=== PATIENT | female | born 1930 | race Caucasian/White ===

== ENCOUNTER 2017-12-25 09:33 | Inpatient (IN) | payer MEDICARE, OTHER ==
[2017-12-25 10:05] LABS: ADD MAN DIFF? NO
[2017-12-25] MEDS: ADENOSINE 6 MG INJ IV (10:05)
[2017-12-25 10:08] LABS: WHITE BLOOD COUNT 5.3 10^3/ul (4.8-10.8)
[2017-12-25 10:08] LABS: BASOPHILS % 0.6 % (0.0-2.0); EOSINOPHILS # 0.1 10^3/ul (0.0-0.5); EOSINOPHILS % 2.3 % (0.0-7.0); HEMATOCRIT 31.1 % (37.0-47.0); HEMOGLOBIN 9.6 g/dl (12.0-16.0); LYMPHOCYTES # 1.3 10^3/ul (0.8-2.9); LYMPHOCYTES % 25.1 % (15.0-51.0); MEAN CORPUSCULAR HEMOGLOBIN 32.4 pg (29.0-33.0); MEAN CORPUSCULAR HGB CONC 30.9 g/dl (32.0-37.0); MEAN CORPUSCULAR VOLUME 105.1 fl (82.0-101.0); MEAN PLATELET VOLUME 9.8 fl (7.4-10.4); MONOCYTE # 0.4 10^3/ul (0.3-0.9); MONOCYTES % 6.6 % (0.0-11.0); NEUTROPHIL # 3.5 10^3/ul (1.6-7.5); PLATELET COUNT 194 10^3/UL (140-415); RED BLOOD COUNT 2.96 10^6/ul (4.20-5.40); RED CELL DISTRIBUTION WIDTH 15.1 % (11.5-14.5)
[2017-12-25] MEDS: AMIODARONE 900MG/D5W DRIP 500 ML IV ×2 (10:08→10:49)
[2017-12-25] MEDS: DILTIAZEM 25 MG INJ IV (10:24)
[2017-12-25] MEDS: AMIODARONE 150MG/D5W BOLUS IV* (10:33)
[2017-12-25 10:34] LABS: ANION GAP 19 (8-16); BLOOD UREA NITROGEN 29 mg/dl (7-20); CALCIUM 9.1 mg/dl (8.4-10.2); CARBON DIOXIDE 27 mmol/L (21-31); CHLORIDE 110 mmol/L (97-110); CREATININE 1.14 mg/dl (0.44-1.00); GLUCOSE 115 mg/dl (70-220); POTASSIUM 4.1 mmol/L (3.5-5.1); SODIUM 152 mmol/L (135-144)
[2017-12-25 10:46] LABS: TROPONIN-I 0.036 ng/ml (0.00-0.12)
[2017-12-25] MEDS ORDERED: ONDANSETRON 4 MG INJ IV ×2 (11:30→15:00)
[2017-12-25] MEDS: DILTIAZEM 30 MG TAB PO (12:17)
[2017-12-25] MEDS: DEXTROSE 5% 1,000 ML IV (14:58)
[2017-12-25] MEDS ORDERED: GLUCAGON 1 MG INJ IM (15:00)
[2017-12-25] MEDS ORDERED: GLUCOSE GEL 15 GRAM TUBE PO ×2 (15:00)
[2017-12-25] MEDS ORDERED: NACL 0.9% 3 ML SYG IV (15:00)
[2017-12-25] MEDS ORDERED: ACETAMINOPHEN 325 MG TAB PO (15:00)
[2017-12-25] MEDS ORDERED: DEXTROSE 50% 50 ML SYRINGE IV ×2 (15:00)
[2017-12-25] MEDS ORDERED: GLUCOSE GEL 15 GRAM TUBE BUCCAL (15:00)
[2017-12-25 16:25] LABS: CREATINE KINASE 35 IU/L (23-200)
[2017-12-25 16:35] LABS: OSMOLALITY 302 mOsm/kg (280-295)
[2017-12-25 16:36] LABS: CK INDEX 3.5
[2017-12-25 16:38] LABS: TROPONIN-I 0.043 ng/ml (0.00-0.12)
[2017-12-25 16:46] LABS: CK-MB 1.24 ng/ml (0.0-2.4)
[2017-12-25 16:54] LABS: SODIUM,URINE RANDOM 123 mmol/L (30-90)
[2017-12-25 16:54] LABS: CREATININE,URINE RANDOM 45.15 mg/dl (20-320)
[2017-12-25 16:55] LABS: CREATININE,URINE RANDOM 45.13 mg/dl (20-320); PROTEIN/CREAT RATIO 0.19 RATIO
[2017-12-25 17:38] LABS: OSMOLALITY,URINE 453 mOsm/kg (250-1200)
[2017-12-25] MEDS: ACETAMINOPHEN 325 MG TAB PO (17:43)
[2017-12-25] MEDS: INSULIN ASPART [NOVOLOG] 3 ML PEN SC ×2 (18:00→20:52)
[2017-12-25] MEDS: ATORVASTATIN 40 MG TAB PO (20:41)
[2017-12-25] MEDS: FERROUS SULFATE (EC) 325 MG TAB PO (20:41)
[2017-12-25] MEDS: METOPROLOL 25 MG TAB PO (20:42)
[2017-12-25] MEDS: HEPARIN 5,000 UNIT/0.5 ML VIAL SC (20:56)
[2017-12-25 21:49] LABS: CREATINE KINASE 31 IU/L (23-200)
[2017-12-25 22:01] LABS: CK INDEX 4.1; CK-MB 1.26 ng/ml (0.0-2.4); TROPONIN-I 0.043 ng/ml (0.00-0.12)
[2017-12-26] MEDS: ACCU-CHEK XX (02:34)
[2017-12-26] MEDS: DEXTROSE 5% 1,000 ML IV ×2 (04:21→17:52)
[2017-12-26] MEDS: PANTOPRAZOLE (EC) 40 MG TAB PO (05:54)
[2017-12-26 05:57] LABS: ADD MAN DIFF? NO
[2017-12-26 06:04] LABS: BASOPHILS % 0.6 % (0.0-2.0); EOSINOPHILS # 0.2 10^3/ul (0.0-0.5); EOSINOPHILS % 3.4 % (0.0-7.0); HEMATOCRIT 27.8 % (37.0-47.0); HEMOGLOBIN 8.7 g/dl (12.0-16.0); LYMPHOCYTES # 1.5 10^3/ul (0.8-2.9); LYMPHOCYTES % 29.4 % (15.0-51.0); MEAN CORPUSCULAR HEMOGLOBIN 32.2 pg (29.0-33.0); MEAN CORPUSCULAR HGB CONC 31.3 g/dl (32.0-37.0); MEAN PLATELET VOLUME 9.9 fl (7.4-10.4); MONOCYTE # 0.3 10^3/ul (0.3-0.9); MONOCYTES % 6.9 % (0.0-11.0); NEUTROPHILS % 59.5 % (39.0-77.0); PLATELET COUNT 158 10^3/UL (140-415); RED CELL DISTRIBUTION WIDTH 14.9 % (11.5-14.5)
[2017-12-26 06:55] LABS: ALANINE AMINOTRANSFERASE 35 IU/L (13-69); ALBUMIN 3.5 g/dl (3.3-4.9); ALBUMIN/GLOBULIN RATIO 1.29; ALKALINE PHOSPHATASE 97 IU/L (42-121); ANION GAP 13 (8-16); ASPARTATE AMINO TRANSFERASE 23 IU/L (15-46); BLOOD UREA NITROGEN 21 mg/dl (7-20); CALCIUM 8.6 mg/dl (8.4-10.2); CARBON DIOXIDE 29 mmol/L (21-31); CHLORIDE 110 mmol/L (97-110); CHOL/HDL RATIO 3.3 RATIO; CHOLESTEROL 117 mg/dl (100-200); CREATININE 0.98 mg/dl (0.44-1.00); GLUCOSE 116 mg/dl (70-220); HDL CHOLESTEROL 35 mg/dl (33-92); LDL CHOLESTEROL,CALCULATED 58 mg/dl; MAGNESIUM 1.9 mg/dl (1.7-2.5); PHOSPHORUS 3.9 mg/dl (2.5-4.9); POTASSIUM 3.7 mmol/L (3.5-5.1); SODIUM 148 mmol/L (135-144); TOTAL PROTEIN 6.2 g/dl (6.1-8.1); TRIGLYCERIDES 122 mg/dl (0-149)
[2017-12-26 07:12] LABS: HEMOGLOBIN A1C 5.7 % (0-5.9)
[2017-12-26 07:16] LABS: THYROID STIMULATING HORMONE 0.957 MIU/L (0.465-4.680)
[2017-12-26] MEDS: INSULIN ASPART [NOVOLOG] 3 ML PEN SC ×4 (08:00→20:08)
[2017-12-26] MEDS ORDERED: FUROSEMIDE 20 MG TAB PO (09:00)
[2017-12-26] MEDS ORDERED: METOPROLOL (XL) 25 MG TAB PO (09:00)
[2017-12-26] MEDS: METOPROLOL 25 MG TAB PO (09:00)
[2017-12-26] MEDS ORDERED: ISOSORBIDE MONONITRATE(SR)30 MG TAB PO (09:00)
[2017-12-26] MEDS: DOCUSATE SODIUM 100 MG CAP PO (09:01)
[2017-12-26] MEDS: FERROUS SULFATE (EC) 325 MG TAB PO ×2 (09:01→22:09)
[2017-12-26] MEDS: carBAMAZepine CHEW 100 MG CHEW PO (09:01)
[2017-12-26] MEDS: ASPIRIN (EC) 81 MG TAB PO (09:02)
[2017-12-26] MEDS: HEPARIN 5,000 UNIT/0.5 ML VIAL SC ×2 (09:03→22:08)
[2017-12-26] MEDS: LOSARTAN 25 MG TAB PO (12:00)
[2017-12-26] MEDS ORDERED: DILTIAZEM 60 MG TAB PO (15:30)
[2017-12-26] MEDS ORDERED: DILTIAZEM 50 MG INJ IV (15:30)
[2017-12-26] MEDS: DILTIAZEM 50 MG INJ IV (15:39)
[2017-12-26] MEDS: POTASSIUM CHLORIDE (SR) 20 MEQ TAB PO (17:50)
[2017-12-26] MEDS: MAGNESIUM SULFATE 2 GM/50 ML 50 ML IVPB (17:51)
[2017-12-26] MEDS: FUROSEMIDE 40 MG INJ IV (17:52)
[2017-12-26] MEDS ORDERED: METOPROLOL 25 MG TAB PO (21:00)
[2017-12-26] MEDS: ATORVASTATIN 40 MG TAB PO (22:10)
[2017-12-26] MEDS: METOPROLOL 50 MG TAB PO (22:10)
[2017-12-27] MEDS: ACCU-CHEK XX (02:00)
[2017-12-27] MEDS: PANTOPRAZOLE (EC) 40 MG TAB PO (06:26)
[2017-12-27] MEDS: DEXTROSE 5% 1,000 ML IV ×2 (06:38→07:34)
[2017-12-27] MEDS: INSULIN ASPART [NOVOLOG] 3 ML PEN SC ×4 (08:00→20:03)
[2017-12-27] MEDS: carBAMAZepine CHEW 100 MG CHEW PO (09:31)
[2017-12-27] MEDS: FERROUS SULFATE (EC) 325 MG TAB PO ×2 (09:31→20:02)
[2017-12-27] MEDS: ASPIRIN (EC) 81 MG TAB PO (09:32)
[2017-12-27] MEDS: FUROSEMIDE 20 MG INJ IV (09:33)
[2017-12-27] MEDS: METOPROLOL 50 MG TAB PO ×2 (09:33→20:03)
[2017-12-27] MEDS: LOSARTAN 25 MG TAB PO (09:38)
[2017-12-27] MEDS: HEPARIN 5,000 UNIT/0.5 ML VIAL SC ×2 (09:47→20:19)
[2017-12-27] MEDS: ATORVASTATIN 40 MG TAB PO (20:02)
[2017-12-28] MEDS: ACCU-CHEK XX (02:00)
[2017-12-28] MEDS: PANTOPRAZOLE (EC) 40 MG TAB PO (06:18)
[2017-12-28] MEDS: INSULIN ASPART [NOVOLOG] 3 ML PEN SC ×4 (08:00→20:45)
[2017-12-28] MEDS: carBAMAZepine CHEW 100 MG CHEW PO (08:32)
[2017-12-28] MEDS: FERROUS SULFATE (EC) 325 MG TAB PO ×2 (08:32→20:43)
[2017-12-28] MEDS: ASPIRIN (EC) 81 MG TAB PO (08:32)
[2017-12-28] MEDS: LOSARTAN 25 MG TAB PO (08:32)
[2017-12-28] MEDS: METOPROLOL 50 MG TAB PO ×2 (08:32→20:44)
[2017-12-28] MEDS: FUROSEMIDE 20 MG INJ IV (08:33)
[2017-12-28] MEDS: HEPARIN 5,000 UNIT/0.5 ML VIAL SC ×2 (08:40→20:45)
[2017-12-28] MEDS: ATORVASTATIN 40 MG TAB PO (20:43)
[2017-12-29] MEDS: ACCU-CHEK XX (01:34)
[2017-12-29] MEDS: PANTOPRAZOLE (EC) 40 MG TAB PO (05:12)
[2017-12-29] MEDS: INSULIN ASPART [NOVOLOG] 3 ML PEN SC ×2 (08:00→12:00)
[2017-12-29] MEDS: FERROUS SULFATE (EC) 325 MG TAB PO (08:35)
[2017-12-29] MEDS: carBAMAZepine CHEW 100 MG CHEW PO (08:35)
[2017-12-29] MEDS: ASPIRIN (EC) 81 MG TAB PO (08:35)
[2017-12-29] MEDS: FUROSEMIDE 20 MG INJ IV (08:35)
[2017-12-29] MEDS: LOSARTAN 25 MG TAB PO (08:36)
[2017-12-29] MEDS: METOPROLOL 50 MG TAB PO (08:36)
[2017-12-29] MEDS: HEPARIN 5,000 UNIT/0.5 ML VIAL SC ×2 (08:37→08:43)
[2017-12-29 12:32] LABS: ADD MAN DIFF? NO
[2017-12-29 12:34] LABS: BASOPHILS % 0.4 % (0.0-2.0); EOSINOPHILS # 0.2 10^3/ul (0.0-0.5); EOSINOPHILS % 4.5 % (0.0-7.0); HEMATOCRIT 32.3 % (37.0-47.0); HEMOGLOBIN 10.1 g/dl (12.0-16.0); LYMPHOCYTES # 1.1 10^3/ul (0.8-2.9); LYMPHOCYTES % 23.3 % (15.0-51.0); MEAN CORPUSCULAR HGB CONC 31.3 g/dl (32.0-37.0); MEAN CORPUSCULAR VOLUME 102.2 fl (82.0-101.0); MEAN PLATELET VOLUME 9.6 fl (7.4-10.4); MONOCYTE # 0.3 10^3/ul (0.3-0.9); NEUTROPHIL # 3.1 10^3/ul (1.6-7.5); NEUTROPHILS % 64.6 % (39.0-77.0); PLATELET COUNT 186 10^3/UL (140-415); RED BLOOD COUNT 3.16 10^6/ul (4.20-5.40); RED CELL DISTRIBUTION WIDTH 14.4 % (11.5-14.5)
[2017-12-29 12:34] LABS: WHITE BLOOD COUNT 4.9 10^3/ul (4.8-10.8)
[2017-12-29 12:53] LABS: ANION GAP 13 (8-16); BLOOD UREA NITROGEN 28 mg/dl (7-20); CALCIUM 9.1 mg/dl (8.4-10.2); CARBON DIOXIDE 37 mmol/L (21-31); CHLORIDE 103 mmol/L (97-110); CREATININE 1.04 mg/dl (0.44-1.00); GLUCOSE 111 mg/dl (70-220); POTASSIUM 4.7 mmol/L (3.5-5.1); SODIUM 148 mmol/L (135-144)
[2017-12-29 14:01] LABS: FOLATE > 20.0 ng/ml (2.8-20.0)
== END 2017-12-29 15:23 | disposition home or self-care (01) | DRG 308 ==
LOC: MS4 11:04 → E/R 09:33
DX: I48.0 Paroxysmal atrial fibrillation (principal); I50.43 Acute on chronic combined systolic (congestive) and diastolic (congestive) heart failure; E87.0 Hyperosmolality and hypernatremia; I13.0 Hypertensive heart and chronic kidney disease with heart failure and stage 1 through stage 4 chronic kidney disease, or unspecified chronic kidney disease; I48.92 Unspecified atrial flutter; I49.5 Sick sinus syndrome; Z95.810 Presence of automatic (implantable) cardiac defibrillator; E86.0 Dehydration; N18.9 Chronic kidney disease, unspecified; I25.10 Atherosclerotic heart disease of native coronary artery without angina pectoris; E78.5 Hyperlipidemia, unspecified; G62.9 Polyneuropathy, unspecified; I42.9 Cardiomyopathy, unspecified; E66.9 Obesity, unspecified; Z68.33 Body mass index [BMI] 33.0-33.9, adult; D64.9 Anemia, unspecified
CPT/HCPCS: 36415; 71045; 80048; 80053; 80061; 81003; 82550; 82553; 82570; 82607; 82746; 82962; 83036; 83735; 83930; 83935; 84100; 84155; 84300; 84443; 84484; 85025; 93005; 93306; 96365; 96366; 96372; 96375; 96376; 97161; 99291-25

== ENCOUNTER 2017-12-30 15:28 | Inpatient (IN) | payer MEDICARE, OTHER ==
[2017-12-30] MEDS: MAGNESIUM SULFATE 2 GM/50 ML 50 ML IVPB (15:55)
[2017-12-30] MEDS: ASPIRIN 81 MG TAB PO (15:56)
[2017-12-30] MEDS: FUROSEMIDE 40 MG INJ IV (15:56)
[2017-12-30 16:19] LABS: ADD MAN DIFF? NO
[2017-12-30 16:22] LABS: BASOPHILS % 0.5 % (0.0-2.0); EOSINOPHILS # 0.2 10^3/ul (0.0-0.5); EOSINOPHILS % 2.4 % (0.0-7.0); HEMATOCRIT 32.5 % (37.0-47.0); HEMOGLOBIN 10.2 g/dl (12.0-16.0); LYMPHOCYTES # 1.5 10^3/ul (0.8-2.9); LYMPHOCYTES % 23.4 % (15.0-51.0); MEAN CORPUSCULAR HEMOGLOBIN 31.9 pg (29.0-33.0); MEAN CORPUSCULAR HGB CONC 31.4 g/dl (32.0-37.0); MEAN CORPUSCULAR VOLUME 101.6 fl (82.0-101.0); MEAN PLATELET VOLUME 10.7 fl (7.4-10.4); MONOCYTE # 0.6 10^3/ul (0.3-0.9); MONOCYTES % 8.7 % (0.0-11.0); NEUTROPHIL # 4.2 10^3/ul (1.6-7.5); NEUTROPHILS % 64.7 % (39.0-77.0); PLATELET COUNT 195 10^3/UL (140-415); RED CELL DISTRIBUTION WIDTH 14.6 % (11.5-14.5)
[2017-12-30 16:22] LABS: WHITE BLOOD COUNT 6.6 10^3/ul (4.8-10.8)
[2017-12-30] MEDS: DILTIAZEM 25 MG INJ IV (16:23)
[2017-12-30] MEDS: DILTIAZEM-D5W 125MG/125ML DRIP 125 ML IV (16:26)
[2017-12-30] MEDS: SOD CHLORIDE 0.9% 500 ML IV ×2 (16:38→18:01)
[2017-12-30 16:49] LABS: INR 1.06; PROTIME 13.9 Sec (11.9-14.9); PT RATIO 1.1
[2017-12-30 16:50] LABS: ALANINE AMINOTRANSFERASE 23 IU/L (13-69); ALBUMIN 4.1 g/dl (3.3-4.9); ALBUMIN/GLOBULIN RATIO 1.32; ALKALINE PHOSPHATASE 115 IU/L (42-121); ANION GAP 16 (8-16); ASPARTATE AMINO TRANSFERASE 23 IU/L (15-46); BILIRUBIN,INDIRECT 0.1 mg/dl (0-1.1); BILIRUBIN,TOTAL 0.1 mg/dl (0.2-1.3); BLOOD UREA NITROGEN 37 mg/dl (7-20); CARBON DIOXIDE 33 mmol/L (21-31); CHLORIDE 102 mmol/L (97-110); CREATININE 1.41 mg/dl (0.44-1.00); GLUCOSE 148 mg/dl (70-220); PARTIAL THROMBOPLASTIN TIME 31.4 Sec (25.0-35.0); POTASSIUM 4.4 mmol/L (3.5-5.1); SODIUM 147 mmol/L (135-144); TOTAL PROTEIN 7.2 g/dl (6.1-8.1)
[2017-12-30 16:59] LABS: B-TYPE NATRIURETIC PEPTIDE 2220 PG/ML (0-450); TROPONIN-I 0.045 ng/ml (0.00-0.12)
[2017-12-30] MEDS: IODIXANOL LOCM 100 ML BTL (17:20)
[2017-12-30] MEDS: SOD CHLORIDE 0.9% 100 ML (17:20)
[2017-12-30] MEDS ORDERED: ONDANSETRON 4 MG INJ IV ×2 (18:30→19:00)
[2017-12-30 18:39] LABS: LACTIC ACID 1.6 mmol/L (0.5-2.0)
[2017-12-30] MEDS ORDERED: FUROSEMIDE 40 MG INJ IV (19:00)
[2017-12-30] MEDS ORDERED: NITROGLYCERIN (SL) 0.4 MG TAB SL (19:00)
[2017-12-30] MEDS ORDERED: hydrALAzine 20 MG INJ IV (19:00)
[2017-12-30] MEDS ORDERED: morphine 2 MG INJ IV (19:00)
[2017-12-30] MEDS ORDERED: MAGNESIUM HYDROXIDE 30ML CUP PO (19:00)
[2017-12-30] MEDS ORDERED: NA PHOSPHATE/BIPHOS 133 ML ENEMA PR (19:00)
[2017-12-30] MEDS ORDERED: NACL 0.9% 3 ML SYG IV (19:00)
[2017-12-30] MEDS ORDERED: DOCUSATE SODIUM 100 MG CAP PO (19:00)
[2017-12-30 19:35] LABS: FREE T4 (FREE THYROXINE) 1.33 ng/dl (0.85-1.93)
[2017-12-30 19:54] LABS: LACTIC ACID 0.9 mmol/L (0.5-2.0)
[2017-12-30] MEDS: ATORVASTATIN 40 MG TAB PO (22:22)
[2017-12-30] MEDS: FERROUS SULFATE (EC) 325 MG TAB PO (22:22)
[2017-12-30] MEDS: HEPARIN 5,000 UNIT/0.5 ML VIAL SC (22:25)
[2017-12-30 23:51] LABS: CREATINE KINASE 30 IU/L (23-200)
[2017-12-30 23:51] LABS: LACTIC ACID 1.1 mmol/L (0.5-2.0)
[2017-12-31] MEDS: LORAZEPAM 2 MG INJ IV (00:02)
[2017-12-31 00:04] LABS: CK INDEX 2.5; CK-MB 0.76 ng/ml (0.0-2.4); TROPONIN-I 0.042 ng/ml (0.00-0.12)
[2017-12-31] MEDS: DILTIAZEM 25 MG INJ IV ×2 (02:58→03:12)
[2017-12-31] MEDS ORDERED: DILTIAZEM-D5W 125MG/125ML DRIP 125 ML IV (03:00)
[2017-12-31] MEDS: DILTIAZEM-D5W 125MG/125ML DRIP 125 ML IV ×2 (03:10→12:04)
[2017-12-31] MEDS: ACETAMINOPHEN 325 MG TAB PO (03:21)
[2017-12-31] MEDS: SOD CHLORIDE 0.9% 1,000 ML IV (04:20)
[2017-12-31] MEDS: FUROSEMIDE 40 MG INJ IV ×2 (05:28→18:00)
[2017-12-31] MEDS: PANTOPRAZOLE (EC) 40 MG TAB PO (05:29)
[2017-12-31] MEDS: DIGOXIN 500 MCG INJ IV ×2 (06:08→15:26)
[2017-12-31 07:14] LABS: ADD MAN DIFF? NO
[2017-12-31 07:20] LABS: WHITE BLOOD COUNT 9.9 10^3/ul (4.8-10.8)
[2017-12-31 07:20] LABS: BASOPHILS % 0.3 % (0.0-2.0); EOSINOPHILS % 0.1 % (0.0-7.0); HEMATOCRIT 30.6 % (37.0-47.0); HEMOGLOBIN 9.7 g/dl (12.0-16.0); LYMPHOCYTES # 0.9 10^3/ul (0.8-2.9); LYMPHOCYTES % 8.6 % (15.0-51.0); MEAN CORPUSCULAR HEMOGLOBIN 32.1 pg (29.0-33.0); MEAN CORPUSCULAR HGB CONC 31.7 g/dl (32.0-37.0); MEAN CORPUSCULAR VOLUME 101.3 fl (82.0-101.0); MEAN PLATELET VOLUME 10.6 fl (7.4-10.4); MONOCYTE # 0.8 10^3/ul (0.3-0.9); MONOCYTES % 8.2 % (0.0-11.0); NEUTROPHILS % 81.4 % (39.0-77.0); PLATELET COUNT 170 10^3/UL (140-415); RED BLOOD COUNT 3.02 10^6/ul (4.20-5.40); RED CELL DISTRIBUTION WIDTH 14.6 % (11.5-14.5)
[2017-12-31 07:49] LABS: HEMOGLOBIN A1C 5.5 % (0-5.9)
[2017-12-31 07:50] LABS: CREATINE KINASE 32 IU/L (23-200)
[2017-12-31 07:52] LABS: ANION GAP 15 (8-16); BLOOD UREA NITROGEN 37 mg/dl (7-20); CALCIUM 8.7 mg/dl (8.4-10.2); CARBON DIOXIDE 30 mmol/L (21-31); CHLORIDE 107 mmol/L (97-110); CREATININE 1.37 mg/dl (0.44-1.00); GLUCOSE 156 mg/dl (70-220); MAGNESIUM 2.3 mg/dl (1.7-2.5); PHOSPHORUS 3.8 mg/dl (2.5-4.9); POTASSIUM 3.8 mmol/L (3.5-5.1); SODIUM 148 mmol/L (135-144)
[2017-12-31 07:57] LABS: CK INDEX 2.5; TROPONIN-I 0.081 ng/ml (0.00-0.12)
[2017-12-31 08:00] LABS: CHOLESTEROL 129 mg/dl (100-200)
[2017-12-31 08:00] LABS: CHOL/HDL RATIO 2.9 RATIO; HDL CHOLESTEROL 44 mg/dl (33-92); LDL CHOLESTEROL,CALCULATED 71 mg/dl; TRIGLYCERIDES 71 mg/dl (0-149)
[2017-12-31] MEDS: ASPIRIN (EC) 81 MG TAB PO (08:15)
[2017-12-31] MEDS: POTASSIUM CHLORIDE (SR) 10 MEQ TAB PO (08:16)
[2017-12-31 08:25] LABS: THYROID STIMULATING HORMONE 0.356 MIU/L (0.465-4.680)
[2017-12-31] MEDS: FERROUS SULFATE (EC) 325 MG TAB PO ×2 (08:26→20:30)
[2017-12-31] MEDS: HEPARIN 5,000 UNIT/0.5 ML VIAL SC ×2 (08:26→20:35)
[2017-12-31] MEDS: ALBUTEROL/IPRATROPIUM (NEB) 3 ML AMP HHN (11:23)
[2017-12-31] MEDS: HALOPERIDOL 5 MG INJ IV (11:37)
[2017-12-31] MEDS: FUROSEMIDE 20 MG INJ IV (11:43)
[2017-12-31] MEDS ORDERED: AMIODARONE 900 MG in DEXTROSE 5% 482 ML IV (15:30)
[2017-12-31] MEDS: AMIODARONE 150MG/D5W BOLUS 100 ML IV (16:22)
[2017-12-31] MEDS: AMIODARONE 900 MG in DEXTROSE 5% 482 ML IV (16:39)
[2017-12-31] MEDS: ATORVASTATIN 40 MG TAB PO (20:30)
[2018-01-01] MEDS: SOD CHLORIDE 0.9% 1,000 ML IV ×2 (00:30→07:27)
[2018-01-01] MEDS: PANTOPRAZOLE (EC) 40 MG TAB PO (04:56)
[2018-01-01] MEDS: FUROSEMIDE 40 MG INJ IV (04:56)
[2018-01-01 07:47] LABS: ADD MAN DIFF? NO
[2018-01-01 07:58] LABS: WHITE BLOOD COUNT 9.2 10^3/ul (4.8-10.8)
[2018-01-01 07:58] LABS: BASOPHILS % 0.2 % (0.0-2.0); EOSINOPHILS % 0.4 % (0.0-7.0); HEMATOCRIT 28.1 % (37.0-47.0); HEMOGLOBIN 8.9 g/dl (12.0-16.0); LYMPHOCYTES # 0.8 10^3/ul (0.8-2.9); LYMPHOCYTES % 8.5 % (15.0-51.0); MEAN CORPUSCULAR HEMOGLOBIN 32.2 pg (29.0-33.0); MEAN CORPUSCULAR HGB CONC 31.7 g/dl (32.0-37.0); MEAN CORPUSCULAR VOLUME 101.8 fl (82.0-101.0); MEAN PLATELET VOLUME 11.1 fl (7.4-10.4); MONOCYTE # 0.8 10^3/ul (0.3-0.9); MONOCYTES % 8.6 % (0.0-11.0); NEUTROPHIL # 7.5 10^3/ul (1.6-7.5); PLATELET COUNT 133 10^3/UL (140-415); RED BLOOD COUNT 2.76 10^6/ul (4.20-5.40)
[2018-01-01 08:22] LABS: ALANINE AMINOTRANSFERASE 35 IU/L (13-69); ALBUMIN 3.4 g/dl (3.3-4.9); ALBUMIN/GLOBULIN RATIO 1.09; ALKALINE PHOSPHATASE 98 IU/L (42-121); ANION GAP 16 (8-16); ASPARTATE AMINO TRANSFERASE 29 IU/L (15-46); BILIRUBIN,INDIRECT 0.2 mg/dl (0-1.1); BILIRUBIN,TOTAL 0.2 mg/dl (0.2-1.3); BLOOD UREA NITROGEN 46 mg/dl (7-20); CALCIUM 8.1 mg/dl (8.4-10.2); CARBON DIOXIDE 28 mmol/L (21-31); CHLORIDE 103 mmol/L (97-110); CREATININE 1.57 mg/dl (0.44-1.00); GLUCOSE 130 mg/dl (70-220); MAGNESIUM 2.3 mg/dl (1.7-2.5); SODIUM 143 mmol/L (135-144); TOTAL PROTEIN 6.5 g/dl (6.1-8.1)
[2018-01-01 08:29] LABS: B-TYPE NATRIURETIC PEPTIDE 8040 PG/ML (0-450)
[2018-01-01 08:30] LABS: ANION GAP 13 (8-16); BLOOD UREA NITROGEN 47 mg/dl (7-20); CALCIUM 8.1 mg/dl (8.4-10.2); CARBON DIOXIDE 30 mmol/L (21-31); CHLORIDE 106 mmol/L (97-110); CREATININE 1.49 mg/dl (0.44-1.00); GLUCOSE 130 mg/dl (70-220); POTASSIUM 4.2 mmol/L (3.5-5.1); SODIUM 145 mmol/L (135-144)
[2018-01-01 08:37] LABS: FREE T4 (FREE THYROXINE) 1.43 ng/dl (0.85-1.93)
[2018-01-01] MEDS: HEPARIN 5,000 UNIT/0.5 ML VIAL SC ×2 (09:00→20:22)
[2018-01-01] MEDS: POTASSIUM CHLORIDE (SR) 10 MEQ TAB PO (09:12)
[2018-01-01] MEDS: ASPIRIN (EC) 81 MG TAB PO (09:12)
[2018-01-01] MEDS: FERROUS SULFATE (EC) 325 MG TAB PO ×2 (09:12→20:15)
[2018-01-01] MEDS: AMIODARONE 900 MG in DEXTROSE 5% 482 ML IV (09:30)
[2018-01-01 09:31] LABS: THYROID STIMULATING HORMONE 0.417 MIU/L (0.465-4.680)
[2018-01-01] MEDS: METOPROLOL 50 MG TAB PO ×2 (13:55→20:15)
[2018-01-01] MEDS: DILTIAZEM 25 MG INJ IV (15:05)
[2018-01-01] MEDS: DILTIAZEM 30 MG TAB PO ×2 (18:11→23:46)
[2018-01-01] MEDS: ATORVASTATIN 40 MG TAB PO (20:14)
[2018-01-01] MEDS: ACETAMINOPHEN 325 MG TAB PO (23:48)
[2018-01-02] MEDS: HYDROCODONE/APAP (5/325) TAB PO (06:09)
[2018-01-02] MEDS: PANTOPRAZOLE (EC) 40 MG TAB PO (06:10)
[2018-01-02] MEDS: DILTIAZEM 30 MG TAB PO ×3 (06:17→22:00)
[2018-01-02] MEDS: ASPIRIN (EC) 325 MG TAB PO (08:51)
[2018-01-02] MEDS: FERROUS SULFATE (EC) 325 MG TAB PO ×2 (08:51→22:31)
[2018-01-02] MEDS: POTASSIUM CHLORIDE (SR) 10 MEQ TAB PO (08:52)
[2018-01-02] MEDS: METOPROLOL 50 MG TAB PO (08:52)
[2018-01-02] MEDS: HEPARIN 5,000 UNIT/0.5 ML VIAL SC ×2 (08:57→21:00)
[2018-01-02] MEDS: ALBUTEROL/IPRATROPIUM (NEB) 3 ML AMP HHN (20:07)
[2018-01-02] MEDS: LORAZEPAM 2 MG INJ IV (20:46)
[2018-01-02] MEDS: METOPROLOL 25 MG TAB PO (21:00)
[2018-01-02 21:38] LABS: ADD MAN DIFF? NO
[2018-01-02 21:43] LABS: BASOPHILS % 0.2 % (0.0-2.0); HEMATOCRIT 28.9 % (37.0-47.0); HEMOGLOBIN 8.9 g/dl (12.0-16.0); LYMPHOCYTES # 1.5 10^3/ul (0.8-2.9); LYMPHOCYTES % 14.6 % (15.0-51.0); MEAN CORPUSCULAR HEMOGLOBIN 31.7 pg (29.0-33.0); MEAN CORPUSCULAR HGB CONC 30.8 g/dl (32.0-37.0); MEAN CORPUSCULAR VOLUME 102.8 fl (82.0-101.0); MEAN PLATELET VOLUME 12.1 fl (7.4-10.4); MONOCYTE # 1.1 10^3/ul (0.3-0.9); MONOCYTES % 10.9 % (0.0-11.0); NEUTROPHIL # 7.5 10^3/ul (1.6-7.5); NEUTROPHILS % 73.3 % (39.0-77.0); PLATELET COUNT 124 10^3/UL (140-415); RED BLOOD COUNT 2.81 10^6/ul (4.20-5.40); RED CELL DISTRIBUTION WIDTH 14.9 % (11.5-14.5)
[2018-01-02 21:43] LABS: WHITE BLOOD COUNT 10.2 10^3/ul (4.8-10.8)
[2018-01-02 21:59] LABS: ANION GAP 18 (8-16); BLOOD UREA NITROGEN 71 mg/dl (7-20); CALCIUM 8.7 mg/dl (8.4-10.2); CARBON DIOXIDE 27 mmol/L (21-31); CHLORIDE 102 mmol/L (97-110); CREATININE 3.01 mg/dl (0.44-1.00); GLUCOSE 129 mg/dl (70-220); SODIUM 142 mmol/L (135-144)
[2018-01-02 22:08] LABS: LACTIC ACID 2.2 mmol/L (0.5-2.0)
[2018-01-02] MEDS: ATORVASTATIN 40 MG TAB PO (22:32)
[2018-01-02 23:06] LABS: FOLATE > 20.0 ng/ml (2.8-20.0)
[2018-01-03] MEDS: ALBUTEROL/IPRATROPIUM (NEB) 3 ML AMP HHN ×2 (02:00→12:15)
[2018-01-03 02:57] LABS: LACTIC ACID 1.3 mmol/L (0.5-2.0)
[2018-01-03] MEDS: DILTIAZEM 30 MG TAB PO ×3 (05:37→21:10)
[2018-01-03] MEDS: PANTOPRAZOLE (EC) 40 MG TAB PO (05:38)
[2018-01-03] MEDS: POTASSIUM CHLORIDE (SR) 10 MEQ TAB PO (08:52)
[2018-01-03] MEDS: METOPROLOL 25 MG TAB PO ×2 (08:52→21:00)
[2018-01-03] MEDS: ASPIRIN (EC) 325 MG TAB PO (08:55)
[2018-01-03] MEDS: FERROUS SULFATE (EC) 325 MG TAB PO ×2 (08:55→21:10)
[2018-01-03] MEDS: HEPARIN 5,000 UNIT/0.5 ML VIAL SC ×2 (08:59→21:00)
[2018-01-03 10:21] LABS: ADD MAN DIFF? NO
[2018-01-03 10:24] LABS: WHITE BLOOD COUNT 9.2 10^3/ul (4.8-10.8)
[2018-01-03 10:24] LABS: BASOPHILS % 0.1 % (0.0-2.0); HEMOGLOBIN 8.4 g/dl (12.0-16.0); LYMPHOCYTES # 0.9 10^3/ul (0.8-2.9); LYMPHOCYTES % 9.8 % (15.0-51.0); MEAN CORPUSCULAR HEMOGLOBIN 32.3 pg (29.0-33.0); MEAN CORPUSCULAR HGB CONC 32.3 g/dl (32.0-37.0); MEAN PLATELET VOLUME 12.4 fl (7.4-10.4); MONOCYTES % 10.5 % (0.0-11.0); NEUTROPHIL # 7.3 10^3/ul (1.6-7.5); NEUTROPHILS % 78.9 % (39.0-77.0); PLATELET COUNT 121 10^3/UL (140-415)
[2018-01-03 10:46] LABS: MAGNESIUM 2.5 mg/dl (1.7-2.5)
[2018-01-03 10:51] LABS: ANION GAP 18 (8-16); BLOOD UREA NITROGEN 75 mg/dl (7-20); CALCIUM 8.4 mg/dl (8.4-10.2); CARBON DIOXIDE 25 mmol/L (21-31); CHLORIDE 102 mmol/L (97-110); GLUCOSE 174 mg/dl (70-220); POTASSIUM 4.3 mmol/L (3.5-5.1); SODIUM 141 mmol/L (135-144)
[2018-01-03] MEDS: ACETAMINOPHEN 325 MG TAB PO (12:01)
[2018-01-03] MEDS: ATORVASTATIN 40 MG TAB PO (21:10)
[2018-01-04] MEDS: HYDROCODONE/APAP (5/325) TAB PO (04:46)
[2018-01-04] MEDS: DILTIAZEM 30 MG TAB PO ×2 (06:00→14:33)
[2018-01-04] MEDS: ASPIRIN (EC) 325 MG TAB PO (08:06)
[2018-01-04] MEDS: FERROUS SULFATE (EC) 325 MG TAB PO ×2 (08:06→21:11)
[2018-01-04] MEDS: HEPARIN 5,000 UNIT/0.5 ML VIAL SC ×2 (08:08→21:00)
[2018-01-04] MEDS: METOPROLOL 25 MG TAB PO ×2 (08:15→20:59)
[2018-01-04 13:09] LABS: ADD MAN DIFF? NO
[2018-01-04 13:11] LABS: BASOPHILS % 0.3 % (0.0-2.0); EOSINOPHILS % 0.2 % (0.0-7.0); HEMATOCRIT 28.7 % (37.0-47.0); LYMPHOCYTES # 1.1 10^3/ul (0.8-2.9); LYMPHOCYTES % 9.9 % (15.0-51.0); MEAN CORPUSCULAR HEMOGLOBIN 31.8 pg (29.0-33.0); MEAN CORPUSCULAR HGB CONC 31.4 g/dl (32.0-37.0); MEAN CORPUSCULAR VOLUME 101.4 fl (82.0-101.0); MEAN PLATELET VOLUME 11.8 fl (7.4-10.4); MONOCYTE # 1.2 10^3/ul (0.3-0.9); MONOCYTES % 10.6 % (0.0-11.0); NEUTROPHIL # 8.8 10^3/ul (1.6-7.5); NEUTROPHILS % 78.4 % (39.0-77.0); PLATELET COUNT 142 10^3/UL (140-415); RED BLOOD COUNT 2.83 10^6/ul (4.20-5.40); RED CELL DISTRIBUTION WIDTH 15.4 % (11.5-14.5)
[2018-01-04 13:11] LABS: WHITE BLOOD COUNT 11.2 10^3/ul (4.8-10.8)
[2018-01-04 13:37] LABS: ANION GAP 20 (8-16); BLOOD UREA NITROGEN 85 mg/dl (7-20); CALCIUM 8.9 mg/dl (8.4-10.2); CARBON DIOXIDE 26 mmol/L (21-31); CHLORIDE 100 mmol/L (97-110); CREATININE 2.52 mg/dl (0.44-1.00); GLUCOSE 114 mg/dl (70-220); POTASSIUM 4.2 mmol/L (3.5-5.1); SODIUM 142 mmol/L (135-144)
[2018-01-04 14:01] LABS: PHOSPHORUS 5.5 mg/dl (2.5-4.9)
[2018-01-04 14:01] LABS: MAGNESIUM 2.8 mg/dl (1.7-2.5)
[2018-01-04] MEDS: DILTIAZEM (CD) 120 MG CAP PO (16:30)
[2018-01-04] MEDS ORDERED: DILTIAZEM 30 MG TAB PO (16:30)
[2018-01-04] MEDS: ATORVASTATIN 40 MG TAB PO (21:11)
[2018-01-05] MEDS: ASPIRIN (EC) 325 MG TAB PO (08:38)
[2018-01-05] MEDS: DILTIAZEM (CD) 120 MG CAP PO ×2 (08:39→20:51)
[2018-01-05] MEDS: FERROUS SULFATE (EC) 325 MG TAB PO ×2 (08:40→20:51)
[2018-01-05] MEDS: METOPROLOL 25 MG TAB PO ×2 (08:41→20:52)
[2018-01-05] MEDS: HEPARIN 5,000 UNIT/0.5 ML VIAL SC ×2 (08:49→20:55)
[2018-01-05] MEDS: DIGOXIN 500 MCG INJ IV (13:16)
[2018-01-05] MEDS: DILTIAZEM 25 MG INJ IV (13:30)
[2018-01-05] MEDS: ATORVASTATIN 40 MG TAB PO (20:51)
[2018-01-06] MEDS: ASPIRIN (EC) 325 MG TAB PO (08:16)
[2018-01-06] MEDS: DILTIAZEM (CD) 120 MG CAP PO ×2 (08:16→20:58)
[2018-01-06] MEDS: FERROUS SULFATE (EC) 325 MG TAB PO ×2 (08:17→20:59)
[2018-01-06] MEDS: METOPROLOL 25 MG TAB PO ×2 (08:17→20:59)
[2018-01-06] MEDS: HEPARIN 5,000 UNIT/0.5 ML VIAL SC ×2 (08:18→21:00)
[2018-01-06 14:21] LABS: WHITE BLOOD COUNT 9.6 10^3/ul (4.8-10.8)
[2018-01-06 14:21] LABS: HEMATOCRIT 29.4 % (37.0-47.0); HEMOGLOBIN 9.5 g/dl (12.0-16.0); MEAN CORPUSCULAR HEMOGLOBIN 31.9 pg (29.0-33.0); MEAN CORPUSCULAR HGB CONC 32.3 g/dl (32.0-37.0); MEAN CORPUSCULAR VOLUME 98.7 fl (82.0-101.0); MEAN PLATELET VOLUME 12.1 fl (7.4-10.4); PLATELET COUNT 228 10^3/UL (140-415); RED BLOOD COUNT 2.98 10^6/ul (4.20-5.40); RED CELL DISTRIBUTION WIDTH 15.8 % (11.5-14.5)
[2018-01-06 14:22] LABS: ADD MAN DIFF? YES; POSITIVE DIFF @See below
[2018-01-06 14:41] LABS: BAND NEUTROPHILS #M 0.4 10^3/ul (0.0-0.6); BAND NEUTROPHILS % (M) 5 % (0-4); BASOPHILS % (M) 1 % (0-2); BURR CELLS 1+ (0-0); EOSINOPHILS % (M) 1 % (0-7); LYMPHOCYTES #M 1.5 10^3/ul (0.8-2.9); LYMPHOCYTES % (M) 16 % (15-51); MONOCYTE #M 0.5 10^3/ul (0.3-0.9); MONOCYTES % (M) 6 % (0-11); PLATELET ESTIMATE NORMAL; POIKILOCYTOSIS 1+ (0-0); POLYCHROMASIA 3+ (0-0); REACTIVE LYMPHOCYTES #M 0.1 10^3/ul (0.0-0.0); REACTIVE LYMPHOCYTES% (M) 2 % (0-0); SEG NEUT #M 6.7 10^3/ul (1.6-7.5); SEGMENTED NEUTROPHILS (M) % 69 % (39-77); SMUDGE%M 2 % (0-0)
[2018-01-06 14:43] LABS: ANION GAP 15 (8-16); BLOOD UREA NITROGEN 84 mg/dl (7-20); CALCIUM 8.8 mg/dl (8.4-10.2); CARBON DIOXIDE 25 mmol/L (21-31); CHLORIDE 109 mmol/L (97-110); GLUCOSE 211 mg/dl (70-220); POTASSIUM 3.8 mmol/L (3.5-5.1); SODIUM 145 mmol/L (135-144)
[2018-01-06] MEDS: ATORVASTATIN 40 MG TAB PO (20:59)
[2018-01-07] MEDS: DILTIAZEM (CD) 120 MG CAP PO ×2 (08:33→23:41)
[2018-01-07] MEDS: FERROUS SULFATE (EC) 325 MG TAB PO ×2 (08:33→21:01)
[2018-01-07] MEDS: METOPROLOL 25 MG TAB PO ×2 (08:33→21:01)
[2018-01-07] MEDS: ASPIRIN (EC) 325 MG TAB PO (08:33)
[2018-01-07] MEDS: HEPARIN 5,000 UNIT/0.5 ML VIAL SC ×2 (08:36→08:45)
[2018-01-07] MEDS ORDERED: PENDING SANTYL ORDER FOR WOUND CARE XX (12:00)
[2018-01-07] MEDS ORDERED: PIPER-TAZO 3.375 GM IV (PMX) 100 ML IVPB (16:00)
[2018-01-07 18:26] LABS: WHITE BLOOD COUNT 10.9 10^3/ul (4.8-10.8)
[2018-01-07 18:26] LABS: HEMATOCRIT 32.9 % (37.0-47.0); HEMOGLOBIN 10.5 g/dl (12.0-16.0); MEAN CORPUSCULAR HEMOGLOBIN 31.6 pg (29.0-33.0); MEAN CORPUSCULAR HGB CONC 31.9 g/dl (32.0-37.0); MEAN CORPUSCULAR VOLUME 99.1 fl (82.0-101.0); MEAN PLATELET VOLUME 11.5 fl (7.4-10.4); NUCLEATED RED BLOOD CELLS% 0.2 /100WBC (0.0-0.0); PLATELET COUNT 322 10^3/UL (140-415); RED BLOOD COUNT 3.32 10^6/ul (4.20-5.40)
[2018-01-07 18:27] LABS: POSITIVE DIFF @See below
[2018-01-07 18:28] LABS: ADD MAN DIFF? YES
[2018-01-07 18:45] LABS: ANION GAP 16 (8-16); BLOOD UREA NITROGEN 59 mg/dl (7-20); CARBON DIOXIDE 26 mmol/L (21-31); CHLORIDE 110 mmol/L (97-110); CREATININE 1.32 mg/dl (0.44-1.00); GLUCOSE 165 mg/dl (70-220); SODIUM 148 mmol/L (135-144)
[2018-01-07 19:25] LABS: BAND NEUTROPHILS #M 0.3 10^3/ul (0.0-0.6); BAND NEUTROPHILS % (M) 3 % (0-4); EOSINOPHILS # 0.3 10^3/ul (0.0-0.5); EOSINOPHILS % (M) 3 % (0.0-7.0); LYMPHOCYTES # 1.2 10^3/ul (0.8-2.9); LYMPHOCYTES #M 1.1 10^3/ul (0.8-2.9); LYMPHOCYTES % (M) 11 % (15-51); MONOCYTE # 0.4 10^3/ul (0.3-0.9); MONOCYTE #M 0.4 10^3/ul (0.3-0.9); MONOCYTES % (M) 4 % (0-11); REACTIVE LYMPHOCYTES #M 0.1 10^3/ul (0.0-0.0); REACTIVE LYMPHOCYTES% (M) 1 % (0-0); SEG NEUT #M 8.5 10^3/ul (1.7-7.5); SEGMENTED NEUTROPHILS (M) % 78 % (39-77)
[2018-01-07 19:26] LABS: OVALOCYTES 1+ (0-0)
[2018-01-07] MEDS: PIPER-TAZO 2.25 GM (PMX) 50 ML IVPB (19:57)
[2018-01-07] MEDS: ATORVASTATIN 40 MG TAB PO (21:01)
[2018-01-08] MEDS: PIPER-TAZO 2.25 GM (PMX) 50 ML IVPB ×6 (00:18→18:07)
[2018-01-08] MEDS: ASPIRIN (EC) 325 MG TAB PO (08:41)
[2018-01-08] MEDS: FERROUS SULFATE (EC) 325 MG TAB PO ×2 (08:42→20:18)
[2018-01-08] MEDS: METOPROLOL 25 MG TAB PO ×2 (08:42→20:18)
[2018-01-08] MEDS: HEPARIN 5,000 UNIT/0.5 ML VIAL SC ×3 (08:45→20:21)
[2018-01-08] MEDS: DILTIAZEM (CD) 120 MG CAP PO ×2 (10:02→20:19)
[2018-01-08] MEDS: DIGOXIN 0.125 MG TAB PO (13:15)
[2018-01-08] MEDS: ATORVASTATIN 40 MG TAB PO (20:18)
[2018-01-09] MEDS: PIPER-TAZO 2.25 GM (PMX) 50 ML IVPB ×2 (00:38→05:35)
[2018-01-09] MEDS: ASPIRIN (EC) 325 MG TAB PO (09:05)
[2018-01-09] MEDS: DILTIAZEM (CD) 120 MG CAP PO (09:05)
[2018-01-09] MEDS: FERROUS SULFATE (EC) 325 MG TAB PO (09:05)
[2018-01-09] MEDS: METOPROLOL 25 MG TAB PO (09:06)
[2018-01-09] MEDS: HEPARIN 5,000 UNIT/0.5 ML VIAL SC (09:10)
== END 2018-01-09 12:20 | DRG 291 ==
LOC: TEL 01-02 01:45 → MS2 01-07 11:03 → E/R 15:28 → TEL 18:19
DX: I13.0 Hypertensive heart and chronic kidney disease with heart failure and stage 1 through stage 4 chronic kidney disease, or unspecified chronic kidney disease (principal); I50.43 Acute on chronic combined systolic (congestive) and diastolic (congestive) heart failure; N17.9 Acute kidney failure, unspecified; E05.90 Thyrotoxicosis, unspecified without thyrotoxic crisis or storm; E86.0 Dehydration; I48.0 Paroxysmal atrial fibrillation; I42.9 Cardiomyopathy, unspecified; E78.5 Hyperlipidemia, unspecified; D75.89 Other specified diseases of blood and blood-forming organs; R50.9 Fever, unspecified; N18.9 Chronic kidney disease, unspecified; I25.10 Atherosclerotic heart disease of native coronary artery without angina pectoris; Z95.0 Presence of cardiac pacemaker
CPT/HCPCS: 36415; 71045; 71275; 76775; 80048; 80053; 80061; 82550; 82553; 82607; 82746; 83036; 83605; 83735; 83880; 84100; 84439; 84443; 84484; 85025; 85610; 85730; 87040; 87081; 92610; 93005; 94640; 94664; 96374; 96375; 97110; 97116; 97162; 97167; 97530; 97535; 99285-25